=== PATIENT | male | born 1935 | race Caucasian/White ===

== ENCOUNTER → 2017-08-26 | Outpatient (CLI) | payer MEDICARE, OTHER ==
[2014-10-01 05:20] VITALS: BP 150/79
[~2017-08-26] MED LIST: 0.9 % SODIUM CHLORIDE 10 ML VIAL ONE; BIMA2.5D OP; CALC-45 PO; CHOL100013 PO; DOXY50CA PO; GLUC1CAP48 PO; LATA2.5D3 EACHEYE; LIDOCAINE 1% PF 30 ML VIAL. ONE; MOXI3DRO2 OP; MULT1TAB52 PO; NEPA1.7D OP; OMEG-57 PO; PRED1DRO OP; PRIM50TA PO; PROP10TA PO; methylPREDNISolone ACETATE 80 MG/ML VIAL. ONE
== END | disposition home or self-care (01) ==
LOC: SURG 14:52
PROVIDERS: ATTEND Anesthesiology
DX: M47.816 Spondylosis without myelopathy or radiculopathy, lumbar region (principal); J45.909 Unspecified asthma, uncomplicated; I10 Essential (primary) hypertension; M19.91 Primary osteoarthritis, unspecified site; Z86.73 Personal history of transient ischemic attack (TIA), and cerebral infarction without residual deficits; Z79.899 Other long term (current) drug therapy; Z86.718 Personal history of other venous thrombosis and embolism
CPT/HCPCS: 64493; 64494; J1040; J2001; 64490

== ENCOUNTER → 2017-09-23 | Outpatient (CLI) | payer MEDICARE, OTHER ==
[2014-10-01 05:20] VITALS: BP 150/79
[~2017-09-23] MED LIST changes: +BUPIVACAINE MPF 0.25% 10 ML VIAL. ONE; +DEXAMETHASONE SOD PHOS 4 MG/ML VIAL ONE; +IOHEXOL 300 MG/ML 50 ML VIAL. ONE; -methylPREDNISolone ACETATE 80 MG/ML VIAL. ONE
== END | disposition home or self-care (01) ==
LOC: SURG 12:16
PROVIDERS: ATTEND Anesthesiology
DX: M54.16 Radiculopathy, lumbar region (principal); J45.909 Unspecified asthma, uncomplicated; M19.91 Primary osteoarthritis, unspecified site; Z98.890 Other specified postprocedural states
CPT/HCPCS: 64483; 64484; J1100; J2001; J3490; Q9967

== ENCOUNTER → 2017-10-02 | Outpatient (CLI) | payer MEDICARE, OTHER ==
[2014-10-01 05:20] VITALS: BP 150/79
[~2017-10-02] MED LIST changes: -0.9 % SODIUM CHLORIDE 10 ML VIAL ONE; -BUPIVACAINE MPF 0.25% 10 ML VIAL. ONE; -DEXAMETHASONE SOD PHOS 4 MG/ML VIAL ONE; +IOHEXOL 240 MG/ML 50ML VIAL. ONE; -IOHEXOL 300 MG/ML 50 ML VIAL. ONE; -LIDOCAINE 1% PF 30 ML VIAL. ONE
--- NOTE | 2017-10-02 15:25 | RAD ---
CT of the abdomen and pelvis without contrast 10/02/2017 Indication: Right upper quadrant pain with a mass in that area. Comparison study: CT of the abdomen and pelvis with contrast June 08, 2015 Technique: Multidetector CT imaging of the abdomen and pelvis was performed following the administration of oral contrast only. IV contrast was not given. Findings: The visualized lung bases demonstrate no acute abnormality. Prior cholecystectomy is noted. The liver, spleen, adrenal glands, and pancreas have an unremarkable noncontrast enhanced appearance. Small left renal cysts are similar to comparison exam. The kidneys are otherwise grossly unremarkable. There is no evidence of bowel obstruction. No acute inflammatory changes involving the bowel are identified. Prior appendectomy is noted. No significant free fluid or free air is seen in the abdomen or pelvis. The bladder is grossly unremarkable. Diffuse atherosclerotic vascular disease is noted. Tortuosity of the aorta is mild. There is ectasia of the bilobed infrarenal abdominal aorta measuring up to 3 cm in maximal axial diameter. No evidence of acute osseous abnormality is identified. Impression: No evidence of acute intra-abdominal abnormality is identified.
== END | disposition home or self-care (01) ==
LOC: CT 13:39
PROVIDERS: ATTEND Family Medicine
DX: I77.811 Abdominal aortic ectasia (principal); R19.01 Right upper quadrant abdominal swelling, mass and lump; I70.8 Atherosclerosis of other arteries; Z90.49 Acquired absence of other specified parts of digestive tract
CPT/HCPCS: 74176; Q9966

== ENCOUNTER → 2017-10-21 | Outpatient (CLI) | payer MEDICARE, OTHER ==
[2014-10-01 05:20] VITALS: BP 150/79
[~2017-10-21] MED LIST changes: +0.9 % SODIUM CHLORIDE 10 ML VIAL ONE; +BUPIVACAINE MPF 0.25% 10 ML VIAL. ONE; +DEXAMETHASONE SOD PHOS 4 MG/ML VIAL ONE; -IOHEXOL 240 MG/ML 50ML VIAL. ONE; +IOHEXOL 300 MG/ML 50 ML VIAL. ONE; +LIDOCAINE 1% PF 30 ML VIAL. ONE; +methylPREDNISolone ACETATE 80 MG/ML VIAL. ONE
== END | disposition home or self-care (01) ==
LOC: SURG 12:05
PROVIDERS: ATTEND Anesthesiology
DX: M54.16 Radiculopathy, lumbar region (principal); J45.909 Unspecified asthma, uncomplicated; M19.91 Primary osteoarthritis, unspecified site
CPT/HCPCS: 62323; J1100; J2001; J3490; Q9967; J1040

== ENCOUNTER → 2019-10-30 | Outpatient (CLI) | payer MEDICARE, OTHER ==
[2014-10-01 05:20] VITALS: BP 150/79
[~2019-10-30] MED LIST changes: -0.9 % SODIUM CHLORIDE 10 ML VIAL ONE; -BUPIVACAINE MPF 0.25% 10 ML VIAL. ONE; -DEXAMETHASONE SOD PHOS 4 MG/ML VIAL ONE; -IOHEXOL 300 MG/ML 50 ML VIAL. ONE; -LIDOCAINE 1% PF 30 ML VIAL. ONE; +MOXI3DRO18 OP; -MOXI3DRO2 OP; -methylPREDNISolone ACETATE 80 MG/ML VIAL. ONE
--- NOTE | 2019-10-30 14:47 | RAD ---
Right lower extremity venous Doppler ultrasound History: Pain in right knee. Comparison: None. Procedure: Color flow Doppler, Doppler spectral analysis, and 2D images are obtained with and without compression in the area of the common femoral vein, superficial femoral vein - femoral vein junction, main femoral vein (superficial femoral vein) and popliteal vein. Veins of the proximal calf are also imaged. Findings: There is normal color flow, augmentation, and compressibility of all visualized vein segments. No evidence of deep venous thrombus is present. IMPRESSION: No evidence of right lower extremity deep venous thrombosis. Electronically signed by: Shola Lawrence MD (10/30/2019 2:44 PM) [id number]
== END | disposition home or self-care (01) ==
LOC: US 12:51
PROVIDERS: ATTEND Family Medicine
DX: M25.561 Pain in right knee (principal); Z79.899 Other long term (current) drug therapy; I10 Essential (primary) hypertension; Z86.73 Personal history of transient ischemic attack (TIA), and cerebral infarction without residual deficits
CPT/HCPCS: 93971

== ENCOUNTER 2021-08-23 20:44 | Emergency (ER) | payer MEDICARE, OTHER ==
[~2021-08-23] VITALS: Ht 188 cm; Wt 75.0 kg
[~2021-08-23 20:44] MED LIST changes: +MULT-445 PO; -MULT1TAB52 PO
--- NOTE | 2021-08-23 21:17 | PHYS DOC ---
Past History Past Medical History: DVT, Gallstones, Other Past Surgical History: Cholecystectomy, Other Alcohol Use: None Drug Use: None Adult General Chief Complaint Chief Complaint: MECHANICAL FALL HPI HPI Patient is an 86-year-old male with a past medical history significant for dementia who presents to the emergency department after a fall. States that he was trying to move the recycle bins back into the house when he tripped and fell onto the concrete. Endorses right elbow, left hip, and left knee pain, 8 out of 10, sharp in nature no radiation. Denies any numbness/weakness/tingling. Denies any loss of consciousness, changes in vision, chest pain, shortness of breath, abdominal pain, nausea, vomiting. Review of Systems Review of Systems Review of systems otherwise unremarkable except noted in HPI Allergies Allergies Allergies Coded Allergies Type Severity Reaction Last Updated Verified No Known Drug Allergies 10/01/14 No Physical Exam Physical Exam Constitutional: Well developed, well nourished, no acute distress, non-toxic appearance. [] HENT: Normocephalic, atraumatic, oropharynx moist, no oral exudates, nose normal. [] Eyes: conjunctiva normal, no discharge. [] Neck: Normal range of motion, no tenderness, supple, no stridor. [] Cardiovascular:Heart rate regular rhythm, no murmur [] Lungs & Thorax: Bilateral breath sounds clear to auscultation [] Abdomen: Bowel sounds normal, soft, no tenderness, no masses, no pulsatile masses. [] Skin: Warm, dry, no erythema, no rash. [] Back: No tenderness throughout midline of entire spine with no obvious deformities or step-offs Extremities: Tenderness and pain with passive range of motion of left hip and left knee as well as right elbow. Neurovascular exam intact. Neurologic: Alert and oriented X 3, normal motor function, normal sensory function, no focal deficits noted. [] Psychologic: Affect normal, judgement normal, mood normal. [] Current Patient Data Vital Signs Vital Signs Date Time Temp Pulse Resp B/P (MAP) Pulse Ox O2 Delivery O2 Flow Rate FiO2 08/23/21 20:47 97.3 87 15 159/80 (106) 100 Room Air EKG EKG [] Radiology/Procedures Radiology/Procedures []NDINGS: Visualized portions of the thyroid are unremarkable. No enlarged mediastinal lymph nodes are identified. Heart size is normal. No pericardial effusion. Thoracic aorta has a normal course and caliber. Pulmonary artery is not enlarged. Airways are patent. Strandy opacities noted at dependent portion lungs likely representing atelectasis. Mild centrilobular emphysematous change. No suspicious lung nodules. No pleural effusion or thickening. Evaluation of solid organs limited secondary to noncontrast technique. Liver, spleen, pancreas and adrenals are unremarkable. Gallbladder is absent. No perinephric inflammation or hydronephrosis. No renal or ureteral calculi are identified. There is a 1.5 cm cystic lesion at the lower pole of the left kidney which is partially exophytic and measures higher than simple fluid attenuation. Bladder is partially distended and not well evaluated. Prostate is not enlarged. Large and small bowel are unremarkable. Appendix is normal. No free intra-abdominal air or fluid. No obstruction. There is infrarenal abdominal aortic aneurysm which measures 3.3 cm in diameter. No enlarged intra-abdominal lymph nodes are identified. There is a comminuted intertrochanteric left hip fracture noted. No suspicious osseous lesions. IMPRESSION: 1. Comminuted intertrochanteric left hip fracture. 2. No sequela of acute traumatic injury in the chest. 3. Cystic lesion at the inferior pole of the left kidney measuring 1.5 cm incompletely characterized on this study. Further evaluation with nonemergent/outpatient renal protocol CT or MRI is recommended. Electronically signed by: Romeo Mayo MD (08/23/2021 10:01 PM) [facility] Heart Score C/O Chest Pain: No Risk Factors: Risk Factors: DM, Current or recent (<one month) smoker, HTN, HLP, family history of CAD, obesity. Risk Scores: Risk Factors: DM, Current or recent (<one month) smoker, HTN, HLP, family history of CAD, obesity. Course & Med Decision Making Course & Med Decision Making Patient is an 86-year-old male who presents emergency department after fall in his driveway Vital signs notable for hyper tension. Physical exam noted above. Placed on the monitor with IV access established and IV fluid begun. Made n.p.o. Given pain medicine. Imaging notable for comminuted intertrochanteric left fracture. Laboratory gnosis not concerning. Discussed findings with family and recommended transfer admission to the orthopedic service [place]. Family grateful, verbalized understanding and agreed with plan of discharge. Dragon Disclaimer Dragon Disclaimer This electronic medical record was generated, in whole or in part, using a voice recognition dictation system. Departure Departure: Impression: Primary Impression: Intertrochanteric fracture Disposition: HOME / SELF CARE / HOMELESS Admitting Physician: Misty Laurent Condition: IMPROVED Referrals: NOHEMY CARRION MD (PCP) ENIO ROBLES MD Aug 23, 2021 21:17
--- NOTE | 2021-08-23 21:52 | RAD ---
CT Head W/O Contrast: History: Reason: fall / Spl. Instructions: / History: Comparison: none Axial images were obtained without contrast. There is marked diffuse atrophy. There is no mass effect, extraaxial fluid collections or hydrocepha jimmy. There is no gross bleed. Moderate, patchy periventricular and subcortical white matter hypoatte nuation is seen. There is no focal loss of ramirez-white matter distinction to suggest acute ischemia, i.e. stroke. Impression: No acute findings. End impression CT C-Spine without contrast: Clinical History: Reason: fall / Spl. Instructions: / History: Technique: Axial helical images of the cervical spine were obtained without contrast, axial coronal and sagittal reconstruction was performed. Findings: There is no loss of vertebral body stature. There is no prevertebral soft tissue swelling. The vert ebral bodies are well aligned. There is straightening of the normal cervical lordosis which can be p ositional or could be chronic. The C1-C2 relationship is normal. The visualized osseous structures ap pear normal. Evaluation of the central canal is limited without contrast. There is multiple posterio r disc bulges resulting in flattening of the thecal sac. There does not appear to be gross flattening of the cervical cord. There is marked narrowing of multiple neuroforamen. Impression: No acute findings. Clinical correlation suggested. PQRS Compliance Statement: One or more of the following individualized dose reduction techniques were utilized for this examinat ion: 1. Automated exposure control 2. Adjustment of the mA and/or kV according to patient size 3. Use of iterative reconstruction technique Electronically signed by: Nathan Thompson III, MD (08/23/2021 9:50 PM) [facility]
--- NOTE | 2021-08-23 22:03 | RAD ---
Exam: CT of chest, abdomen and pelvis without contrast INDICATION: Fall TECHNIQUE: Sequential axial images through the chest, abdomen and pelvis obtained without IV contrast . Sagittal and coronal reformatted images were reconstructed from the axial data and reviewed. Exposure: One or more of the following in the visualized dose reduction techniques were utilized for this examination: 1. Automated exposure control 2. Adjustment of the MA and/or KV according to patient size 3. Use of iterative of reconstructive technique Comparisons: None FINDINGS: Visualized portions of the thyroid are unremarkable. No enlarged mediastinal lymph nodes are identifi ed. Heart size is normal. No pericardial effusion. Thoracic aorta has a normal course and caliber. Pulmon gracie artery is not enlarged. Airways are patent. Strandy opacities noted at dependent portion lungs likely representing atelectasi s. Mild centrilobular emphysematous change. No suspicious lung nodules. No pleural effusion or thickening. Evaluation of solid organs limited secondary to noncontrast technique. Liver, spleen, pancreas and adrenals are unremarkable. Gallbladder is absent. No perinephric inflammation or hydronephrosis. No renal or ureteral calculi are identified. There is a 1.5 cm cystic lesion at the lower pole of the left kidney which is partially exophytic and measures higher than simple fluid attenuation. Bladder is partially distended and not well evaluated. Prostate is not enlarged. Large and small bowel are unremarkable. Appendix is normal. No free intra-abdominal air or fluid. No obstruction. There is infrarenal abdominal aortic aneurysm which measures 3.3 cm in diameter. No enlarged intra-abdominal lymph nodes are identified. There is a comminuted intertrochanteric left hip fracture noted. No suspicious osseous lesions. IMPRESSION: 1. Comminuted intertrochanteric left hip fracture. 2. No sequela of acute traumatic injury in the chest. 3. Cystic lesion at the inferior pole of the left kidney measuring 1.5 cm incompletely characterized on this study. Further evaluation with nonemergent/outpatient renal protocol CT or MRI is recommende d. Electronically signed by: Romeo Mayo MD (08/23/2021 10:01 PM) [facility]
--- NOTE | 2021-08-23 22:04 | RAD ---
Exam: CT left lower extremity without contrast INDICATION: Fall, left hip pain TECHNIQUE: Sequential axial images through the left femur obtained without IV contrast. Sagittal and coronal reformatted images were reconstructed from the axial data and reviewed. Exposure: One or more of the following in the visualized dose reduction techniques were utilized for this examination: 1. Automated exposure control 2. Adjustment of the MA and/or KV according to patient size 3. Use of iterative of reconstructive technique Comparisons: None FINDINGS: Visualized intrapelvic structures are unremarkable. Mild osteopenia. There is a comminuted intertrochanteric left hip fracture which is mildly foreshorte ariel an impacted. No other fractures are identified. Left hip joint, pubic symphysis and visualized portions of the left sacroiliac joint are well-maintai ariel. Soft tissues of the visualized left lower extremity is unremarkable. IMPRESSION: Comminuted intertrochanteric left hip fracture. Electronically signed by: Romeo Mayo MD (08/23/2021 10:02 PM) [facility]
--- NOTE | 2021-08-23 22:36 | RAD ---
Two-view right elbow HISTORY: Pain status post fall Limited 2 view AP lateral views The visualized osseous structures appear normal. There is no displacement of the fat pad. IMPRESSION: No acute findings. Electronically signed by: Nathan Thompson III, MD (08/23/2021 10:34 PM) [facility]
[2021-08-23 22:46] LABS: BASO % 1 % (0-3); EOS # 0.1 x10^3/uL (0.0-0.7); EOS % 2 % (0-3); HEMATOCRIT 40.5 % (39.0-53.0); HEMOGLOBIN 13.5 g/dL (13.0-17.5); LYMPH # 1.3 x10^3/uL (1.0-4.8); LYMPH % 21 % (24-48); MEAN CORPUSCULAR HEMOGLOBIN 32 pg (25-35); MEAN CORPUSCULAR HGB CONC 33 g/dL (31-37); MEAN CORPUSCULAR VOLUME 96 fL (79-100); MONO # 0.6 x10^3/uL (0.0-1.1); MONO % 9 % (0-9); NEUT # 4.3 x10^3uL (1.8-7.7); NEUT % 68 % (31-73); PLATELET COUNT 147 x10^3/uL (140-400); RED BLOOD COUNT 4.22 x10^6/uL (4.30-5.70); RED CELL DISTRIBUTION WIDTH 15.3 % (11.5-14.5); WHITE BLOOD COUNT 6.3 x10^3/uL (4.0-11.0)
[2021-08-23 22:47] LABS: CALCIUM 8.4 mg/dL (8.5-10.1); GFR 70.5; POTASSIUM 4.2 mmol/L (3.5-5.1)
[2021-08-23] MEDS ORDERED: MORPHINE SULFATE 4 MG/ML DISP.SYRIN. IV ONE (23:00)
[2021-08-23] MEDS ORDERED: IV RINGERS SOLUTION,LACTATED 1,000 ML IV ONE (23:00)
[2021-08-24] MEDS ORDERED: MORPHINE SULFATE 4 MG/ML DISP.SYRIN. IV ONE (00:30)
[2021-08-24] MEDS ORDERED: DIPH,PERTUSS(ACELL),TET VAC/PF 0.5 ML SYRINGE. VAX IM ONE (01:00)
[2021-08-24 01:25] VITALS: BP 135/68
== END 2021-08-24 01:30 | disposition home or self-care (01) ==
LOC: ER 20:44
DX: S72.142A Displaced intertrochanteric fracture of left femur, initial encounter for closed fracture (principal); Z20.822 Contact with and (suspected) exposure to COVID-19; Z90.49 Acquired absence of other specified parts of digestive tract; W01.0XXA Fall on same level from slipping, tripping and stumbling without subsequent striking against object, initial encounter; Y93.89 Activity, other specified; Y92.89 Other specified places as the place of occurrence of the external cause; Y99.8 Other external cause status
CPT/HCPCS: 36415; 70450; 71250; 72125; 73070; 73700; 74176; 80048; 85025; 90471; 90715; 96361; 96374; 96376; 99285; C9803; J2270; J7120; U0003